=== PATIENT | male | born 2000 | race Caucasian/White ===

== ENCOUNTER 2019-06-06 16:41 | Emergency (ER) | payer BC, OTHER ==
[2019-06-06 17:06] VITALS: BP 121/73; PULSE 81; TEMP 98.1; BMI 21.9
--- NOTE | 2019-06-06 18:13 | PDOC ---
Documentation entered by Maggie Young SCRIBE, acting as scribe for Monico Chow MD. Monico Chow MD: This documentation has been prepared by the kuldeepibeHector Lincy, SCRIBE, under my direction and personally reviewed by me in its entirety. I confirm that the documentation accurately reflects all work, treatment, procedures, and medical decision making performed by me. History of Present Illness - General Chief Complaint: Pain, Acute Stated Complaint: PAIN IN HANDS History Source: Patient Exam Limitations: No Limitations - History of Present Illness Initial Comments: 06/06/19 17:35 The patient is a 19-year-old male with no reported past medical history who presents to the emergency department with upper body pain. The patient presents with two weeks of upper body pain with wearing tight clothes around his waist. The patient reports even the slightest tightness around his waist, he feels pain to the upper body, with a new onset of upper extremity pain today. The patient reports relief with loose clothes. The patient reports he was on the bus [employer], when he felt like he was going to pass out, denies LOC. The patient reports following up at [facility] for the symptoms , the patent reports he was told it was anxiety-related, however, the patient states he doesnt have anxiety but reports he is under a lot of stress. The patient reports for the past month, hes been smoking excessively, sleeping less , and eating less. The patient reports he is trying to turn his life around, and he quit marijuana 5 days ago. The patient reports following up with a psychiatrist for sleep issues, who prescribed the patient hydralazine. The patient reports he had an appointment with the psychiatrist tomorrow. Denies urinary symptoms. Allergies: NKA Social history: Student, lives with father. The patient reports he recently quit Marijuana. Surgical history: No surgical history PCP: None reported. Review of system: CONSTITUTIONAL: Absent: fever, chills, diaphoresis, generalized weakness, malaise, loss of appetite HEENT: Absent: rhinorrhea, nasal congestion, throat pain, throat swelling, difficulty swallowing, mouth swelling, ear pain, eye pain, visual Changes CARDIOVASCULAR: Absent: chest pain, syncope, palpitations, irregular heart rate, lightheadedness , peripheral edema RESPIRATORY: Absent: cough, shortness of breath, dyspnea with exertion, orthopnea, wheezing, stridor, hemoptysis GASTROINTESTINAL: Absent: abdominal pain, abdominal distension, nausea, vomiting, diarrhea, constipation, melena, hematochezia GENITOURINARY: Absent: dysuria, frequency, urgency, hesitancy, hematuria, flank pain, genital pain MUSCULOSKELETAL: +upper body pain and upper extremity pain. Absent: joint swelling SKIN: Absent: rash, itching, pallor HEMATOLOGIC/IMMUNOLOGIC: Absent: easy bleeding, easy bruising, lymphadenopathy, frequent infections NEUROLOGIC: Absent: headache, focal weakness or paresthesias, dizziness, unsteady gait, bladder or bowel incontinence PSYCHIATRIC: Absent: anxiety, depression, suicidal or homicidal ideation, hallucinations. Physical exam: GENERAL:+anxious appearing male, in no acute distress. Well developed, well nourished. Awake and alert. HEENT: Normocephalic, atraumatic. PERRLA, EOMI. No conjunctival pallor. Sclera are non- icteric. Moist mucous membranes. Oropharynx is clear. NECK: Supple. Full ROM. No JVD. CARDIOVASCULAR: Regular rate and rhythm. No murmurs, rubs, or gallops. PULMONARY: No evidence of respiratory distress. Lungs clear to auscultation bilaterally. No wheezing, rales or rhonchi. ABDOMINAL: Soft. Non-tender. Non-distended. Normoactive bowel sounds. MUSCULOSKELETAL Normal range of motion at all joints. EXTREMITIES: No cyanosis. No clubbing. No edema. SKIN: Warm and dry. Normal capillary refill. No rashes. No jaundice. NEUROLOGICAL: Alert, awake, appropriate. Cranial nerves 2-12 intact. Gait is normal without ataxia. PSYCHIATRIC: Alert and oriented x3, no signs of suicidal or homicidal ideation, no hallucination or delusion. No obvious paranoia. Cooperative. Past History - Past Medical History Allergies/Adverse Reactions: Allergies Allergy/AdvReac Type Severity Reaction Status Date / Time No Known Allergies Allergy Verified 06/06/19 16:42 Home Medications: Ambulatory Orders NK [No Known Home Medication] 02/17/15 - Surgical History Appendectomy: Yes - Immunization History Immunization Up to Date: Yes - Psycho Social/Smoking Cessation Hx Smoking History: Unknown if ever smoked 'Breaking Loose' booklet given: 08/12/14 Hx Alcohol Use: No Substance Use Type: Marijuana *Physical Exam - Vital Signs Last Vital Signs Temp Pulse Resp BP Pulse Ox 98.1 F 81 16 121/73 100 06/06/19 16:42 06/06/19 16:42 06/06/19 16:42 06/06/19 16:42 06/06/19 16:42 Medical Decision Making - Medical Decision Making 06/06/19 18:13 Patient with a history of drug abuse and anxiety, seeing a psychiatrist, taking hydroxyzine for sleep. No signs of depression or psychosis. States he has stopped using drugs for 5 days. He is going to school, attempting to exercise regularly, living with his father, who is a security tester. His symptoms appear purely somatic manifestations of anxiety/stress. His physical exam, other than mild anxiety manifestations, is entirely normal. Stress reduction techniques were discussed with the patient. He was encouraged to remain drug and alcohol free, to make an effort at school, to exercise regularly, and his symptoms should improve with time. He seemed receptive, agreed with the assessment, and will attempt the above. Fully ambulatory and in no pain or other distress at discharge Discharge - Discharge Information Problems reviewed: Yes Clinical Impression/Diagnosis: Musculoskeletal pain Condition: Stable Disposition: HOME - Admission No - Follow up/Referral - Patient Discharge Instructions Patient Printed Discharge Instructions: Get a Handle on Stress with Physical Fitness, Tips for Reducing Stress in Your Life, DI for Anxiety -- Adult Additional Instructions: No drugs or alcohol. Consider relaxation techniques, deep breathing, exercise, meditation and/or yoga. Try to get good nutrition and adequate sleep. Discuss your symptoms with your psychiatrist. With a healthy lifestyle, your symptoms should gradually resolve on their own. - Post Discharge Activity
== END 2019-06-06 17:28 | disposition home or self-care (01) ==
LOC: FER 16:41
DX: M79.10 Myalgia, unspecified site (principal); F41.9 Anxiety disorder, unspecified; F19.90 Other psychoactive substance use, unspecified, uncomplicated
CPT/HCPCS: 99281-25

== ENCOUNTER 2021-01-27 18:58 | Emergency (ER) | payer OTHER ==
[2021-01-27 19:03] VITALS: BP 117/68; PULSE 86; TEMP 97.8; BMI 20.3
== END 2021-01-27 19:30 | disposition home or self-care (01) ==
LOC: FER 18:58
DX: Z48.02 Encounter for removal of sutures (principal)
CPT/HCPCS: 99281-25

== ENCOUNTER 2021-04-05 00:27 | Emergency (ER) | payer OTHER ==
[2021-04-05] MEDS ORDERED: DIPHTH,PERTUSS(ACELL),TET 0.5 ML DISP.SYRIN IM ONE ×2 (00:30→00:31)
[2021-04-05] MEDS ORDERED: FOLIC ACID INJECTION - 1 MG, THIAMINE HCL 100 MG, MULTIVIT INJECTION ADULT 10 ML in SOD... IVPB ONE (00:33)
[2021-04-05] MEDS ORDERED: SODIUM CHLORIDE 0.9% 500 ML INFUS.BAG IV ONE (00:33)
[2021-04-05] MEDS ORDERED: LIDOCAINE 2%/EPINEPHRINE 1:100000 (50 ML MD VIAL) INF ONE (00:34)
[2021-04-05 00:39] VITALS: BMI 21.2
[2021-04-05] MEDS ORDERED: HALOPERIDOL LACTATE 5 MG/ML IM ONE (01:16)
[2021-04-05] MEDS ORDERED: LIDOCAINE 1%/EPI 1:100000 (20 ML MULTI DOSE VIAL) ONE (01:23)
[2021-04-05] MEDS ORDERED: HALOPERIDOL LACTATE 5 MG/ML ONE ×2 (01:23→02:38)
[2021-04-05 01:37] LABS: BASO % 0.6 % (0-2.0); EOS % 1.8 % (0-4.5); HEMATOCRIT 43.5 % (35.4-49); HEMOGLOBIN 14.8 GM/dL (11.7-16.9); LYMPH % 22.7 % (8-40); MCH 33.2 pg (25.7-33.7); MEAN CELL VOLUME 97.4 fl (80-96); MEAN PLT VOLUME 8.3 fl (7.5-11.1); MONO % 5.3 % (3.8-10.2); NEUT % 69.6 % (42.8-82.8); PLATELET COUNT 200 10^3/uL (134-434); RBC 4.47 M/mm3 (4.00-5.60); WHITE BLOOD COUNT 7.1 K/mm3 (4.0-10.0)
[2021-04-05 01:49] LABS: ALBUMIN 4.3 g/dl (3.4-5.0); BLOOD UREA NITROGEN 9.4 mg/dL (7-18); CALCIUM 8.8 mg/dL (8.5-10.1)
[2021-04-05 01:52] LABS: CREATININE 1.1 mg/dL (0.55-1.3)
[2021-04-05 01:54] LABS: BILIRUBIN,TOTAL 1.7 mg/dL (0.2-1); TOT PROT 7.6 g/dl (6.4-8.2)
[2021-04-05 08:10] LABS: METHADONE, UR NEGATIVE (NEGATIVE); PHENCYCLIDINE,URINE NEGATIVE (NEGATIVE)
[2021-04-05 08:11] LABS: COCAINE, UR NEGATIVE (NEGATIVE); URINE BARBITURATES NEGATIVE (NEGATIVE); URINE BENZODIAZEPINES NEGATIVE (NEGATIVE)
[2021-04-05 08:20] LABS: OPIATES, URI NEGATIVE (NEGATIVE); URINE AMPHETAMINES NEGATIVE (NEGATIVE)
[2021-04-05 11:01] VITALS: BP 106/65; PULSE 73; TEMP 98.4
== END 2021-04-05 10:55 | disposition home or self-care (01) ==
LOC: JER 00:27
PROC: 0HQ0XZZ Repair Scalp Skin, External Approach (ICD-10-PCS; principal; 2021-04-05)
PROC: 0HQ1XZZ Repair Face Skin, External Approach (ICD-10-PCS; 2021-04-05)
PROC: 3E023GC Introduction of Other Therapeutic Substance into Muscle, Percutaneous Approach (ICD-10-PCS; 2021-04-05)
PROC: 3E033GC Introduction of Other Therapeutic Substance into Peripheral Vein, Percutaneous Approach (ICD-10-PCS; 2021-04-05)
PROC: 3E0234Z Introduction of Serum, Toxoid and Vaccine into Muscle, Percutaneous Approach (ICD-10-PCS; 2021-04-05)
DX: S01.01XA Laceration without foreign body of scalp, initial encounter (principal); S01.81XA Laceration without foreign body of other part of head, initial encounter; S61.211A Laceration without foreign body of left index finger without damage to nail, initial encounter; S61.213A Laceration without foreign body of left middle finger without damage to nail, initial encounter; Y00.XXXA Assault by blunt object, initial encounter
CPT/HCPCS: 12004; 12013; 36415; 70450-TC; 70486-TC; 80053; 80307; 82962; 85025; 85730; 86850; 86900; 86901; 90471; 90715; 93005; 93010; 96365; 96366; 96372; 99285-25

== ENCOUNTER 2021-05-09 20:18 | Emergency (ER) | payer OTHER ==
[2021-05-09 20:31] VITALS: BP 115/50; PULSE 75; BMI 21.1
== END 2021-05-09 20:44 | disposition home or self-care (01) ==
LOC: FER 20:18
DX: S01.01XA Laceration without foreign body of scalp, initial encounter (principal); Y99.9 Unspecified external cause status; Z48.02 Encounter for removal of sutures
CPT/HCPCS: 99281-25

== ENCOUNTER 2023-08-05 16:29 | Emergency (ER) | payer OTHER ==
[2023-08-05 16:41] VITALS: BP 119/75; PULSE 79; RESP 18; TEMP 97.5; BMI 21.9
== END 2023-08-05 17:34 | disposition left against medical advice (07) ==
LOC: JERFT 16:29
DX: M25.511 Pain in right shoulder (principal)
CPT/HCPCS: 99281-25

== ENCOUNTER 2023-08-28 18:00 | Emergency (ER) | payer OTHER ==
[2023-08-28 18:11] VITALS: BP 121/76; PULSE 82; RESP 18; TEMP 98; BMI 20.5
[2023-08-28] MEDS ORDERED: LIDOCAINE 4% PATCH TP ONE (18:48)
[2023-08-28] MEDS ORDERED: IBUPROFEN 600 MG TABLET (FP) PO ONE (18:49)
[2023-08-28] MEDS ORDERED: ACETAMINOPHEN 500 MG TABLET (FP) ONE (18:49)
[2023-08-28] MEDS: IBUPROFEN 600 MG TABLET (FP) PO ONE (18:54)
[2023-08-28] MEDS: LIDOCAINE 4% PATCH TP ONE (18:54)
[2023-08-28] MEDS: ACETAMINOPHEN 500 MG TABLET (FP) PO ONE (18:55)
[2023-08-28] MEDS ORDERED: LIDOCAINE PATCH REMOVAL MC SCH (22:00)
== END 2023-08-28 19:10 | disposition home or self-care (01) ==
LOC: JERFT 18:00
DX: M25.511 Pain in right shoulder (principal); X50.1XXA Overexertion from prolonged static or awkward postures, initial encounter
CPT/HCPCS: 99283-25

== ENCOUNTER 2023-09-05 23:37 | Inpatient (IN) | payer OTHER ==
[2023-09-05 20:43] VITALS: BMI 19.8
[2023-09-06] MEDS ORDERED: POLYETHYLENE GLYCOL (HEALTHYLAX) 3350 17 GM PACKET PO PRN (08:00)
[2023-09-06] MEDS ORDERED: NALOXONE HCL 0.4 MG/ML VIAL IM PRN (08:00)
[2023-09-06] MEDS ORDERED: guaiFENesin 600 MG TABLET.ER (FP) PO PRN (08:00)
[2023-09-06] MEDS ORDERED: IBUPROFEN 600 MG TABLET (FP) PO PRN (08:00)
[2023-09-06] MEDS ORDERED: BENZOCAINE/MENTHOL (CHLORASEPTIC ) LOZENGE MM PRN (08:00)
[2023-09-06] MEDS ORDERED: NALOXONE HCL (KLOXXADO) 8 MG SPRAY NS PRN (08:00)
[2023-09-06] MEDS ORDERED: MAGNESIUM HYDROX 2400MG/30ML ORAL SUSPENSION 30 ML CUP PO PRN (08:00)
[2023-09-06] MEDS ORDERED: ACETAMINOPHEN 325 MG TABLET (FP) PO PRN (08:00)
[2023-09-06] MEDS ORDERED: MAG HYDROX/AL HYDROX/SIMETH 30 ML UNIT-DOSE CUP PO PRN (08:00)
[2023-09-06] MEDS ORDERED: LOPERAMIDE HCL 2 MG CAPSULE PO PRN (08:00)
[2023-09-06] MEDS ORDERED: IBUPROFEN 400 MG TABLET (FP) PO PRN (08:00)
[2023-09-06] MEDS ORDERED: BENZONATATE 200 MG CAPSULE PO PRN (08:00)
[2023-09-06] MEDS: PRENATAL VITAMINS W/ FOLIC ACID TABLET (FP) PO SCH (09:32)
[2023-09-06] MEDS: TUBERCULIN PPD 5 TU/0.1ML VIAL ID ONE (16:14)
[2023-09-06] MEDS: THIAMINE 100 MG TABLET PO SCH (21:12)
[2023-09-06] MEDS: hydrOXYzine PAMOATE 25 MG CAPSULE (FP) PO PRN (21:13)
[2023-09-06] MEDS: MELATONIN 5 MG TABLETS PO SCH (21:14)
[2023-09-07 11:22] LABS: HEMATOCRIT 43.3 % (35.4-49); HEMOGLOBIN 14.3 GM/dL (11.7-16.9); MCH 33.3 pg (25.7-33.7); MCHC 32.9 g/dl (32.0-35.9); MEAN CELL VOLUME 101.2 fl (80-96); MEAN PLT VOLUME 8.5 fl (7.5-11.1); PLATELET COUNT 267 10^3/uL (134-434); RBC 4.28 M/mm3 (4.00-5.60); RDW 11.9 % (11.9-15.9); WHITE BLOOD COUNT 5.5 K/mm3 (4.0-10.0)
[2023-09-07 11:23] LABS: PH,URINE 7.5 (5.0-8.0); URINE APPEARANCE CLEAR; URINE BILIRUBIN NEGATIVE (NEGATIVE); URINE COLOR YELLOW; URINE GLUCOSE (UA) NEGATIVE (NEGATIVE); URINE KETONE NEGATIVE (NEGATIVE); URINE LEUK ESTERASE NEGATIVE (NEGATIVE); URINE NITRITE NEGATIVE (NEGATIVE); URINE PROTEIN NEGATIVE (NEGATIVE); URINE UROBILINOGEN 0.2 mg/dL (0.2-1.0)
[2023-09-07 11:49] LABS: SYPHILIS W/ RPR CONF NON-REACTIVE (NONREACTIVE)
[2023-09-07 12:12] LABS: POTASSIUM 4.7 mmol/L (3.5-5.1)
[2023-09-07 12:18] LABS: CALCIUM 9.5 mg/dL (8.5-10.1)
[2023-09-07 12:19] LABS: BLOOD UREA NITROGEN 19.7 mg/dL (7-18)
[2023-09-07 12:23] LABS: BILIRUBIN,TOTAL 1.2 mg/dL (0.2-1); TOT PROT 7.4 g/dl (6.4-8.2)
[2023-09-07] MEDS: QUEtiapine FUMARATE 100 MG TABLET (FP) PO SCH (21:09)
[2023-09-09 11:51] LABS: INR 1.03 (0.83-1.09); PROTHROMBIN TIME (PATIENT) 11.6 SEC (9.7-13.0)
[2023-09-09 11:54] LABS: MAGNESIUM 1.9 mg/dL (1.8-2.4)
[2023-09-11] MEDS ORDERED: QUEtiapine FUMARATE 50 MG TABLET ONE (19:46)
[2023-09-12] MEDS: CHOLECALCIFEROL (VIT D3) 400 UNIT (10 MCG) TABLET PO SCH (12:40)
[2023-09-12] MEDS: LACTULOSE 20 GM/30 ML UDC (FOR ORAL USE ONLY) PO SCH (13:08)
[2023-09-12 17:26] VITALS: PULSE 85
[2023-09-13 07:13] VITALS: BP 116/57; RESP 17; TEMP 97.5
== END 2023-09-13 15:20 | disposition left against medical advice (07) | DRG 770 ==
LOC: YASAS 23:37 → Y3W 09-06 09:44 → Y5N 09-12 16:10
PROVIDERS: ADMIT Allergy & Immunology; ATTEND Psychiatry & Neurology Pain Medicine
PROC: HZ42ZZZ Group Counseling for Substance Abuse Treatment, Cognitive-Behavioral (ICD-10-PCS; principal; 2023-09-06)
DX: F10.20 Alcohol dependence, uncomplicated (principal); F14.20 Cocaine dependence, uncomplicated; F12.20 Cannabis dependence, uncomplicated; F15.10 Other stimulant abuse, uncomplicated; F16.10 Hallucinogen abuse, uncomplicated; F25.9 Schizoaffective disorder, unspecified; E72.20 Disorder of urea cycle metabolism, unspecified; G47.00 Insomnia, unspecified; Z86.59 Personal history of other mental and behavioral disorders; Z72.0 Tobacco use; Z59.00 Homelessness unspecified
CPT/HCPCS: 36415; 80053; 80307; 81003; 82140; 82607; 82652; 82746; 83735; 85027; 85610; 86704; 86706; 86707; 86709; 86780; 86803; 87350; 87380; 93005; 93010